=== PATIENT | female | born 1980 | race Caucasian/White ===

== ENCOUNTER 2019-07-21 07:54 | Outpatient (CLI) | payer OTHER, SELFPAY ==
--- NOTE | 2019-07-23 02:01 | SLEEP_ITS ---
Home Sleep Test DATE OF STUDY: 07/21/2019 REASON FOR THIS STUDY: Excessive fatigue, wakes up at night gasping for air. HISTORY: This patient is a 39-year-old female, 5 feet 11 inches tall, weighing 240 pounds with a body mass index of 33.4. Sleep survey indicates that she is always tired. Some night, she wakes up gasping for air. This has been going on for several months. There is a family history with her mother having sleep apnea. She constantly snores and it is frequently loud enough that others complain about it. She occasionally awakens at night from sleep short of breath. She frequently wakes up gasping at night. She occasionally sweats excessively at night. She does not fall asleep involuntarily or while driving. She does not have loss of muscle tone with strong emotion. She rarely has daytime difficulty due to excessive sleepiness. She does not have sleep paralysis. She is never afraid to go to sleep and does not have nightmares. She occasionally remembers her dreams and occasionally has racing thoughts. She rarely feels sad, depressed, anxious, or have muscular tension. She rarely has crawling and aching feelings in the legs. She does not awaken at night with pain, does not feel stiff in the morning, does not have sore achy muscles or wake up with pain in the neck or spine. Normal bedtime is 10 p.m., taking 10 to 15 minutes to fall asleep waking 2 to 3 times at night for 1 to 3 minutes. During this time, she will go to the bathroom. She wakes up in the morning at 6 a.m. Weekend, she goes to bed 1 hour later and wakes up 2 hours later. She does not take naps. A short nap is not refreshing. She is usually drowsy in the morning for 1 hour or longer. She feels better in the evening than other times a day. MEDICAL COMORBIDITIES: Diabetes mellitus. MEDICATIONS: 1. Metformin 1000 mg twice a day. 2. Steglatro 15 mg daily. HABITS: No tobacco, caffeine, or alcohol. DESCRIPTION OF THE STUDY: On the [place] Sleepiness Scale, the score is 1. This was conducted as a home sleep test with 4-channel monitoring including respiratory effort channel, pulse oximetry channel, snoring channel, and heart rate channel. The study was scored using CMS guidelines. Duration of the study was 8 hours 29 minutes. The apnea-hypopnea index was 2.6. This is normal. The respiratory disturbance index was mildly elevated at 6.9. The lowest desaturation is 86%. She had 7 apneas. A 71% of the apneas or 5 were obstructive, 29% of the apneas or 2 were central. She had 15 hypopneas, 261 snoring events, and desaturated 15 times. She spent 1 minute below 88% saturation. Heart rate ranged from 44 to 112, which is elevated. IMPRESSION: This home sleep test does not show significant evidence of sleep-disordered breathing. She had mild hypoxemia at 86%. She had several spikes in her blood pressure with the highest 112 which is also suggestive of sleep apnea. One disadvantage of a home sleep test is that amount of sleep is not known. Her symptoms suggest sleep-disordered breathing. However, this home sleep test is not diagnostic. The patient does not have hypertension or depression. If her symptoms are persistent, consider in-lab sleep study using a sleep aid to assure that she would be able to sleep throughout the night. This test may be more accurate. Consider sleeping in the side position, using [id number] nasal devices such as Breathe Right nasal strips, weight loss and treating any nasal obstruction such as rhinitis with nasal steroid to reduce snoring. Close followup is recommended. MADISYN MOSLEY M.D. [employer] WELDER SETTER [employer]INE WELDER SETTER
== END 2019-07-21 07:55 | disposition home or self-care (01) ==
LOC: ANHCSM 07:55
PROVIDERS: PCP Internal Medicine; Visit Provider Internal Medicine
DX: G47.10 Hypersomnia, unspecified (principal); G47.36 Sleep related hypoventilation in conditions classified elsewhere
CPT/HCPCS: 95806

== ENCOUNTER 2019-08-25 07:00 | Outpatient (CLI) | payer OTHER, SELFPAY ==
--- NOTE | 2019-09-18 15:28 | SLEEP_ITS ---
DATE OF STUDY: 08/25/2019 ORDERING PHYSICIAN: Jose Sapp D.O. REASON FOR THIS STUDY: Hypersomnia. HISTORY: This patient is a 39-year-old female, 71 inches tall, weighing 241 pounds with a body mass index of 33.6. She has complaints of waking up during the night, gasping for air and never feeling rested in the morning. She is tired even after a full night of sleep. This has been going on longer than 2 years. She frequently snores loudly enough that others complain about it. She does not awaken at night with heartburn, belching, or coughing. She rarely awakens from sleep short of breath. There is a family history with her mother having sleep apnea. The patient has difficulty falling asleep at times, wakes up during the night and always has excessive daytime sleepiness. She occasionally has trouble sleeping with a cold, occasionally gasps for breath at night and occasionally sweats excessively at night. She occasionally falls asleep during the day. She does not fall asleep involuntarily, while driving, during physical effort and does not have loss of muscle tone with strong emotion. She occasionally has daytime difficulties due to excessive sleepiness. She does not feel paralyzed on waking or falling asleep. She rarely has vivid dreamlike scenes upon awakening or falling asleep. She does not feel afraid to go to sleep and does not have nightmares. She occasionally remembers her dreams, occasionally has racing thoughts, occasionally has feelings of sadness, depression and anxiety. She never has muscular tension, does not notice parts of her body jerking, does not kick at night and does not have crawly and achy feelings in her legs. She rarely has leg pain at night. She denies morning jaw pain. She rarely is bothered by pain during the day. She is not awakened by pain at night. She rarely wakes up feeling stiff in the morning, occasionally with sore achy muscles, rarely with pain in the neck and spine. She has significant fatigue. Bedtime is between 09:30 p.m. and 11:00 p.m., taking 10 to 15 minutes to fall asleep, waking multiple times at night to use the bathroom, change positions and get comfortable. She wakes in the morning between 5 and 6:30 a.m. On weekends, she goes to bed later between 11:00 p.m. and 1:00 a.m. and wakes between 7 and 08:00 a.m.. She does not take naps. A short nap is not refreshing. She is usually drowsy in the morning for 2 hours or longer. She feels better in the afternoon and the evenings compared to the morning. MEDICAL COMORBIDITIES: Hypertension, heart disease, depression, seasonal allergies. MEDICATIONS: Metformin, iron daily, vitamin, calcium and vitamin D. HABITS: Never smoked tobacco. Caffeine, the amount varies. No alcohol. DESCRIPTION OF THE STUDY: On the [place] Sleepiness Scale, her score is 6. This was conducted as a full night basic nocturnal polysomnogram using the [employer] multiple channel system including EOG, EEG, submental EMG, EKG, nasal and oral airflow using thermistors and nasal pressure sensors, chest and abdominal belts, body position data and pulse oximetry. This study was scored using [facility] guidelines. Duration of the study was 425.4 minutes. Sleep time was 322.5 minutes. Sleep efficiency was 75.8%. Sleep latency 16.6 minutes and REM latency was delayed at 155 minutes. The patient had 24 awakenings and spent 21.1% of the study. Awake after sleep onset 86.4 minutes. Sleep architecture showed 7.1% stage 1 sleep, 57.5% stage 2 sleep, 0.5% stage 3 sleep and 13.8% stage REM. She slept in the supine position for 65.8% of the study. The remainder was non-supine. The patient had 4 REM cycles. The first third of the night was extremely disrupted with long episodes of wakefulness. She had fragmentation of sleep with shifts between wake
== END 2019-08-25 07:01 | disposition home or self-care (01) ==
LOC: ANHCSM 07:01
PROVIDERS: PCP Internal Medicine; Visit Provider Internal Medicine
DX: G47.10 Hypersomnia, unspecified (principal); G47.33 Obstructive sleep apnea (adult) (pediatric); Z68.33 Body mass index [BMI] 33.0-33.9, adult
CPT/HCPCS: 95810

== ENCOUNTER 2020-04-03 14:12 | Emergency (ER) | payer OTHER, SELFPAY ==
--- NOTE | ~2020-04-03 | XR_ITS ---
XR foot LT min 3V DATE: 04/03/2020 14:47 INDICATION: Lateral left foot pain for 2 weeks. No known injury. TECHNIQUE: 4 views COMPARISON: None FINDINGS: Subacute or ununited fracture at the very proximal shaft of the second metatarsal bone. Old healed fracture deformity of the proximal shaft of the fifth metatarsal bone. Hallux valgus and bunion deformity. IMPRESSION: Subacute or ununited fracture at the proximal shaft of the second metatarsal Old healed fracture of proximal shaft of fifth metatarsal Hallux valgus and bunion deformity Reviewed, dictated and finalized at location A. IMPRESSION: Subacute or ununited fracture at the proximal shaft of the second m etatarsal Old healed fracture of proximal shaft of fifth metatarsal Hallux valgus and bunion deformity
--- NOTE | ~2020-04-03 | XR_ITS ---
XR foot RT min 3V DATE: 04/03/2020 14:48 INDICATION: Tripped over an object one week ago. Distal metatarsal pain. TECHNIQUE: 4 views COMPARISON: None FINDINGS: There is an ununited fracture at the very proximal shaft of the third metatarsal bone, with pseudarthrosis. Old healed fracture of the proximal shaft of the fourth metatarsal bone. There is slight osteophyte is at the first metatarsophalangeal joint. IMPRESSION: Pseudoarthrosis at ununited fracture at the proximal shaft of the third metatarsal bone Old healed fracture of the proximal shaft of the fourth metatarsal bone No recent fracture or dislocation is detected Reviewed, dictated and finalized at location A. IMPRESSION: Pseudoarthrosis at ununited fracture at the proximal shaft of the t hird metatarsal bone Old healed fracture of the proximal shaft of the fourth metatarsal bone No recent fracture or dislocation is detected
[2020-04-03 14:26] VITALS: BP 118/74; PULSE 55; RESP 20; TEMP 36.7; O2SAT 99
--- NOTE | 2020-04-03 14:41 | ED.GENADULT ---
HPI - General Adult General Chief complaint: Extremity Injury, Lower Stated complaint: INJURED BOTH FEET Time Seen by Provider: 04/03/20 14:30 Source: patient and RN notes reviewed Limitations: no limitations History of Present Illness HPI narrative: 40-year-old female presents today with complaints of bilateral foot pain for 1-2 weeks. Zina says 1 week ago she tripped over a case of water injuring the dorsal area of RT foot, now has intermittent pain with flexing foot. Two weeks ago while walking stepped wrong with LT foot and now has constant pain to LT 4th and 5th toes. No treatment. Hurts to bear weight and certain movement. No radiation of pain. No numbness, tingling, or loss of mobility. Exacerbating factor applying weight and flexing of RT foot. Denies inability to bear weight. Denies discoloration. Denies suspect foreign body. Denies fever or chills. LMP 2 weeks ago. Remains active. The patient reports she have not been diagnosed with COVID-19. The patient reports she is not waiting for the results of a COVID-19 lab test. The patient reports she do not have fever, chills, weakness, or fatigue. The patient reports she do not have a new or worsening cough or shortness of breath. Denies chest pain. The patient reports she do not have any rhinorrhea, congestion, sore throat, loss of taste, nausea, vomiting, abdominal pain, and diarrhea. Tolerating po intake well. Denies recent traveling. Denies concerns for COVID-19 or exposures been home with limited outdoor exposure except for essential household needs, work, and return home. At this time, patient is not suspected of having COVID-19. Some parts of this dictation were generated by voice recognition software and may contain typographical and/or grammatical inaccuracies. Related Data Home Medications Medication Instructions Recorded Confirmed metformin 1,000 mg tablet 1,000 mg PO BID 05/13/19 04/03/20 blood sugar diagnostic #1 05/18/19 02/19/20 Allergies Allergy/AdvReac Type Severity Reaction Status Date / Time No Known Allergies Allergy Unknown Verified 04/03/20 14:33 Review of Systems Review of Systems: Narrative: CONSTITUTIONAL: Denies fever, chills, sweats. EYES: Denies visual changes, redness, discharge. ENT: Denies rhinorrhea, congestion, sore throat, otalgia. CARDIOVASCULAR: Denies chest pain, palpitations, edema. RESPIRATORY: Denies dyspnea, wheezing, cough. GASTROINTESTINAL: Denies abdominal pain, nausea, vomiting, diarrhea. GENITOURINARY: Denies dysuria, hematuria, abnormal discharge. SKIN: Denies rash or itching. MUSCULOSKELETAL: Denies acute back pain or myalgia. Complains of bilateral foot pain. NEUROLOGIC: Denies numbness or focal weakness. PSYCHIATRIC: Denies anxiety or depression. All other systems reviewed are negative, except as documented in HPI and below. [facility] Past Medical History Medical History (Updated 04/04/20 @ 00:00 by Chandra Duque) Bruising Fatigue Hernia Hypersomnia Primary osteoarthritis of right knee Subconjunctival hemorrhage Type 2 diabetes mellitus Surgical History Surgical History (Updated 04/03/20 @ 14:44 by LORNA Murray) History of tubal ligation History of umbilical hernia repair Hx of bariatric surgery Family History Family History (Updated 04/03/20 @ 14:45 by LORNA Murray) Mother Hypertension Family history of type 2 diabetes mellitus Father Alive and well Social History Social History (Updated 04/03/20 @ 14:45 by LORNA Murray) Smoking status: Never smoker Tobacco type: cigarettes Second hand tobacco smoke exposure: No Alcohol intake: never Substance use: never Living arrangements: with family Occupation/Education: occupation Gender identity (if verbalized by the patient): Female Sexual Orientation (if Verbalized by the Patient): Straight or Heterosexual Comments At time of signature, agree with nurse past medical, surgi
== END 2020-04-03 15:27 | disposition home or self-care (01) ==
PROVIDERS: Emergency Provider Nurse Practitioner Family; PCP Internal Medicine
DX: S93.601A Unspecified sprain of right foot, initial encounter (principal); W18.09XA Striking against other object with subsequent fall, initial encounter; S92.322A Displaced fracture of second metatarsal bone, left foot, initial encounter for closed fracture; X50.9XXA Other and unspecified overexertion or strenuous movements or postures, initial encounter; E11.9 Type 2 diabetes mellitus without complications; M17.11 Unilateral primary osteoarthritis, right knee
CPT/HCPCS: 73630; 99214; G0463

== ENCOUNTER 2021-01-04 08:51 | Outpatient (CLI) | payer OTHER, SELFPAY ==
--- NOTE | 2021-01-04 12:00 | NEURO_ITS ---
Impression: # Complains of hand numbness. # Mild Carpal Tunnel Syndrome, bilaterally. # Right ulnar neuropathy across the elbow. # Normal needle/EMG exam. Nerve Conduction Studies Anti Sensory Summary Table Stim Site NR Peak (ms) P-T Amp (?V) Site1 Site2 Delta-P (ms) Dist (cm) Rupert (m/s) Left Median Anti Sensory (2-3nd Digit) Wrist 3.8 19.4 Wrist 2-3nd Digit 3.8 14.0 37 Wrist 3.8 44.2 Wrist 2-3nd Digit 3.8 14.0 37 Right Median Anti Sensory (2-3nd Digit) Wrist 3.5 38.5 Wrist 2-3nd Digit 3.5 14.0 40 Wrist 3.6 16.3 Wrist 2-3nd Digit 3.5 14.0 40 Left Radial Anti Sensory (Base 1st Digit) Wrist 2.1 12.6 Wrist Base 1st Digit 2.1 0.0 Right Radial Anti Sensory (Base 1st Digit) Wrist 2.5 6.4 Wrist Base 1st Digit 2.5 0.0 Left Ulnar Anti Sensory (5th Digit) Wrist 2.7 43.3 Wrist 5th Digit 2.7 14.0 52 Right Ulnar Anti Sensory (5th Digit) Wrist 2.5 37.9 Wrist 5th Digit 2.5 14.0 56 Motor Summary Table Stim Site NR Onset (ms) O-P Amp (mV) Site1 Site2 Delta-0 (ms) Dist (cm) Rupert (m/s) Left Median Motor (Abd Poll Brev) Wrist 4.3 1.8 Elbow Wrist 4.9 30.0 61 Elbow 9.2 1.9 Right Median Motor (Abd Poll Brev) Wrist 4.1 1.9 Elbow Wrist 5.1 28.0 55 Elbow 9.2 1.8 Left Ulnar Motor (Abd Dig Minimi) Wrist 2.5 4.0 A Elbow Wrist 5.2 30.0 58 A Elbow 7.7 3.0 Right Ulnar Motor (Abd Dig Minimi) Wrist 2.8 4.3 A Elbow Wrist 5.7 28.0 49 A Elbow 8.5 3.2 B Elbow Wrist 4.2 21.0 50 B Elbow 7.0 3.4 F Wave Studies NR F-Lat (ms) L-R F-Lat (ms) Left Median (Mrkrs) (Abd Poll Brev) 29.47 0.99 Right Median (Mrkrs) (Abd Poll Brev) 28.48 0.99 Left Ulnar (Mrkrs) (Abd Dig Min) 28.15 0.00 Right Ulnar (Mrkrs) (Abd Dig Min) 28.15 0.00 EMG Side Muscle Nerve Root Ins Act Fibs Amp Dur Recrt Comment Right 1stDorInt Ulnar C8-T1 Nml Nml Nml Nml Nml Right Ext Indicis Radial (Post Int) C7-8 Nml Nml Nml Nml Nml Right Ext Digitorum Radial (Post Int) C7-8 Nml Nml Nml Nml Nml Right BrachioRad Radial C5-6 Nml Nml Nml Nml Nml Right PronatorTeres Median C6-7 Nml Nml Nml Nml Nml Right Abd Poll Brev Median C8-T1 Nml Nml Nml Nml Nml Left 1stDorInt Ulnar C8-T1 Nml Nml Nml Nml Nml Left Ext Indicis Radial (Post Int) C7-8 Nml Nml Nml Nml Nml Left Ext Digitorum Radial (Post Int) C7-8 Nml Nml Nml Nml Nml Left BrachioRad Radial C5-6 Nml Nml Nml Nml Nml Left PronatorTeres Median C6-7 Nml Nml Nml Nml Nml Left Abd Poll Brev Median C8-T1 Nml Nml Nml Nml Nml Right ABD Dig Min Ulnar C8-T1 Nml Nml Nml Nml Nml Left ABD Dig Min Ulnar C8-T1 Nml Nml Nml Nml Nml MTDD
== END 2021-01-04 08:52 | disposition home or self-care (01) ==
LOC: ANHNEURO 08:53
PROVIDERS: PCP Internal Medicine; Visit Provider Clinical Nurse Specialist
DX: R20.0 Anesthesia of skin (principal); G56.03 Carpal tunnel syndrome, bilateral upper limbs; G56.21 Lesion of ulnar nerve, right upper limb
CPT/HCPCS: 95886; 95911

== ENCOUNTER 2021-02-24 08:54 | Emergency (ER) | payer OTHER, SELFPAY ==
--- NOTE | ~2021-02-24 | CT_ITS ---
EXAMINATION: CT abdomen pelvis w con INDICATION: Left lower quadrant pain TECHNIQUE: Computed tomographic images of the abdomen and pelvis were obtained after the administrati on of 100 cc of Omnipaque 350 intravenous contrast. The dose-length product (DLP) was 1198.66 mGy-cm. Automated exposure control and iterative reconstruction technique were employed. COMPARISON: None available FINDINGS: Minimal dependent atelectasis is present in the lung bases. The heart size is normal. Surgi renea changes in the stomach are consistent with weight loss surgery. The liver, spleen, pancreas, gall bladder, and adrenal glands are normal. There are multiple nonobstructing stones of the left kidney l ower pole which measure up to 7 mm. There is a 2 mm nonobstructing stone of the right kidney. No path ologically enlarged abdominal or pelvic lymph nodes are identified. There is a 4.9 x 4.1 cm rim-enhan cing abscess in the left pelvis containing fluid and gas. Although the abscess abuts the sigmoid colo n, it appears to be contiguous with the uterus and fallopian tube. IMPRESSION: 1. Left pelvic abscess suspicious for ovarian abscess although differential includes diverticular abs cess. Reviewed, dictated and finalized at location A. IMPRESSION: 1. Left pelvic abscess suspicious for ovarian abscess although differential inc ludes diverticular abscess.
[2021-02-24 09:05] VITALS: BP 128/72; PULSE 57; RESP 16; TEMP 36.7; O2SAT 100
[2021-02-24 09:18] LABS: Basophils Absolute Auto 0.1 K/mm3 (0.0-0.1); Basophils Percent Auto 0.9 % (0.2-1.2); Eosinophils Absolute Auto 0.3 K/mm3 (0-0.3); Eosinophils Percent Auto 4.8 % (0-4.4); Hematocrit 38.7 % (37.0-47.0); Hemoglobin 11.8 g/dL (12.0-15.0); Immature Granulocyte Absolute 0.02 K/mm3 (0.00-0.031); Immature Granulocyte Percent A 0.3 % (0-0.5); Lymphocytes Absolute Auto 2.79 K/mm3 (0.9-3.2); Lymphocytes Percent Auto 40.7 % (18.3-44.2); Mean Corpuscular HGB Conc 30.5 g/dl (32-36); Mean Corpuscular Hemoglobin 27.2 pg (26-34); Mean Corpuscular Volume 89.2 fl (80-100); Mean Platelet Volume 10.2 fl (7.4-10.4); Monocytes Absolute Auto 0.7 K/mm3 (0.1-0.6); Monocytes Percent Auto 10.7 % (2.6-8.5); Neutrophils Absolute Auto 2.9 K/mm3 (1.3-6.7); Neutrophils Percent Auto 42.6 % (45.5-73.1); Platelet Count Result 335 k/mm3 (150-375); Red Blood Count 4.34 M/mm3 (4.2-5.4); Red Cell Distribution Width 13.7 % (11.5-14.5); White Blood Count 6.9 K/mm3 (4.5-10.0)
--- NOTE | 2021-02-24 09:23 | ED.ABDPAIN ---
HPI - Abdominal Pain General Chief Complaint: Abdominal Pain Stated Complaint: ABD PAIN Time Seen by Provider: 02/24/21 09:22 Source: patient Mode of arrival: ambulatory Limitations: no limitations History of Present Illness HPI narrative: Patient is a 41-year-old female complaining of left lower quadrant pain, 3 out of 10, sharp, nonradiating x3 days. Patient states that she had diarrhea yesterday but now resolved. Patient denies any chest pain, shortness of breath, nausea, vomiting, urinary symptoms, fever or chills. Related Data Home Medications Medication Instructions Recorded Confirmed blood sugar diagnostic #1 05/18/19 02/24/21 Allergies Allergy/AdvReac Type Severity Reaction Status Date / Time No Known Allergies Allergy Unknown Verified 04/03/20 14:33 Review of Systems Review of Systems: All systems reviewed & are unremarkable except as noted in HPI and below Constitutional: Constitutional: Denies body ache(s), Denies chills, Denies excessive sweating, Denies fatigue, Denies fever(s), Denies headache(s), Denies lethargy, Denies malaise, Denies weakness and Denies weight loss Eyes: Eyes: Denies blurry vision, Denies change in vision and Denies loss of vision ENT: Denies dizziness, Denies ear discharge, Denies headache(s), Denies lip swelling, Denies epistaxis, Denies nasal congestion, Denies neck pain, Denies throat swelling and Denies tongue swelling Cardiovascular: Cardiovascular: Denies chest pain, Denies chest pain at rest, Denies chest pain with activity, Denies diaphoresis, Denies rapid heart rate, Denies edema, Denies irregular heart rhythm, Denies lightheadedness, Denies palpitations, Denies dyspnea and Denies dyspnea on exertion Respiratory: Respiratory: Denies chest congestion, Denies cough, Denies hemoptysis, Denies dyspnea and Denies dyspnea on exertion Gastrointestinal: Gastrointestinal: Denies melena, Denies hematochezia, Denies diarrhea, Denies nausea, Denies vomiting and Denies hematemesis Musculoskeletal: Musculoskeletal: Denies abnormal gait, Denies deformity, Denies joint swelling, Denies limited range of motion, Denies neck pain and Denies numbness Neurologic: Denies Abnormal speech present, Denies abnormal gait, Denies confusion, Denies dizziness, Denies headache(s), Denies focal weakness, Denies loss of vision, Denies numbness, Denies Other visual disturbances, Denies Sensory deficit (Neuro) and Denies weakness Psychiatric: Psychiatric: Denies confusion, Denies depression, Denies auditory hallucinations, Denies homicidal ideation and Denies suicidal ideation Endocrine: Endocrine: Denies cold intolerance, Denies excessive sweating, Denies fatigue, Denies heat intolerance and Denies palpitations Hematologic/Lymphatic: Hematologic/Lymphatic: Denies easy bleeding and Denies easy bruising Allergic/Immunologic: Allergic/Immunologic: Denies lip swelling, Denies throat swelling and Denies tongue swelling PMFSH Past Medical History Medical History Bruising Fatigue Fracture, foot Hernia Hypersomnia Numbness and tingling Primary osteoarthritis of right knee Subconjunctival hemorrhage Type 2 diabetes mellitus Surgical History Surgical History H/O brain surgery History of tubal ligation History of umbilical hernia repair Hx of bariatric surgery Family History Family History Mother Hypertension Family history of type 2 diabetes mellitus Father Alive and well Social History Social History Smoking status: Never smoker Tobacco type: cigarettes Second hand tobacco smoke exposure: No Alcohol intake: never Substance use: never Gender identity (if verbalized by the patient): Female Sexual Orientation (if Verbalized by the Patient): Straight or Heterosexual
[2021-02-24 09:29] LABS: Add Urine Microscopic? YES; Appearance Urine Cloudy (Clear); Bacteria Urine Trace /hpf; Bilirubin Urine Negative (Negative); Blood Urine 2+ (Negative); Color Urine Yellow (Yellow); Glucose Urine UA Negative (Negative); Ketones Urine Negative (Negative); Leukocyte Esterase Ur 3+ LEU/UL (Negative); Mucus Urine Rare /lpf; Nitrate Urine Negative (Negative); Protein Urine Negative (Negative); Specific Grav Ur 1.014 (1.001-1.035); Squamous Epithelial Cell Urine Many /hpf (Few); Urobilinogen Urine Negative mg/dL (<2.0); WBC Urine 51-75 /hpf
[2021-02-24 09:30] LABS: Alanine Aminotransferase 22 U/L (4-35); Albumin Level 3.7 g/dL (3.5-5.1); Alkaline Phosphatase 189 U/L (38-126); Anion Gap 6 mmol/L (8-16); Aspartate Amino Transferase 25 U/L (14-36); Bilirubin,Total 0.4 mg/dL (0.2-1.3); Blood Urea Nitrogen 8 mg/dL (7-17); Calcium 9.1 mg/dL (8.4-10.2); Carbon Dioxide 26 mmol/L (22-30); Chloride 106 mmol/L (98-107); Estimated CRCL calculation 120 ml/min; Estimated Glomerular Filt Rate > 60; Glucose 87 mg/dL (65-110); Lipase 102 U/L (23-300); Potassium 3.8 mmol/L (3.4-5.0); Sodium 138 mmol/L (137-145)
[2021-02-24] MEDS: SODIUM CHLORIDE 0.9% IV 1,000 ML 999 ML IV CONT (10:24)
[2021-02-24 11:49] VITALS: BP 105/69; PULSE 67; RESP 18; O2SAT 99
--- NOTE | 2021-02-24 13:05 | PC.NURSE ---
Patient found in hallway stating she is leaving. IV was discontinued prior to leaving and patient was educated to remain in ED room so EDP Chucho can speak to and update patient. Patient stated she can no longer wait because she needs to diamond picker her kid. Patient then walked to the bathroom. EDP was able to speak to prior after using the bathroom and was advised to stay in hospital for further evaluation and testing. Patient refused and quickly ambulated out of ED with a steady gait and with all belongings, refusing to wait to sign AMA paperwork.
--- NOTE | 2021-02-24 13:05 | PC.NURSE ---
patient walked out of ED without difficulty and in no distress
== END 2021-02-24 13:10 | disposition left against medical advice (07) ==
PROVIDERS: Emergency Provider Emergency Medicine; PCP Internal Medicine
DX: K63.0 Abscess of intestine (principal); N73.9 Female pelvic inflammatory disease, unspecified; E11.9 Type 2 diabetes mellitus without complications; M17.11 Unilateral primary osteoarthritis, right knee
CPT/HCPCS: 36415; 74177; 80053; 81001; 81025; 83690; 85025; 87086; 96360; 99284; J7030; Q9967

== ENCOUNTER 2021-03-28 13:44 | Outpatient (CLI) | payer OTHER, SELFPAY ==
--- NOTE | ~2021-03-28 | CT_ITS ---
EXAMINATION: CT abdomen pelvis w con DATE: 03/28/2021 14:30 INDICATION: Follow-up of abscess following antibiotic treatment TECHNIQUE: Computed tomography (CT) of the abdomen and pelvis was performed with 100 cc Omnipaque 350 intravenous contrast. Automated exposure control and iterative reconstruction technique were employe d. Exam dose: 1007.94 mGy-cm total exam DLP. COMPARISON: 02/24/2021 CT abdomen pelvis FINDINGS: The lung bases are clear of infiltrate or consolidation. Normal heart size. No pericardial or pleural effusion. The gallbladder is present. No gallbladder wall thickening or pericholecystic fluid or fat stranding. No hepatic, splenic, pancreatic or adrenal space-occupying mass lesion is evident. No renal mass les ion is noted. There are 2 approximately 2.5 mm and smaller nonobstructing right renal calculi. There are at least s everal lower pole left renal nonobstructing calculi measuring up to approximately 5 mm. No ureteral c alculus or hydroureteronephrosis. The urinary bladder appears unremarkable. The uterus is present. 2 cm right ovarian cyst. Approximately 4.4 x 4.6 cm left adnexal area air-fluid cavity. There is diminished fluid within the c avity and relatively similar size of the cavity since 02/24/2021. This is noted in immediate contiguity with the sigmoid colon as well as the left adnexa. Differential diagnosis includes sigmoid diverticu lar abscess versus tubo-ovarian abscess. There are multiple diverticula of the sigmoid colon. No evidence of appendicitis. No bowel obstruction is evident. No free intraperitoneal air is noted. T here is minimal free fluid in the dependent pelvis. Normal caliber of the abdominal aorta. No intraperitoneal or retroperitoneal or pelvic mass lesion or adenopathy. Included skeletal structures are unremarkable. IMPRESSION: Stable size of left pelvic cavity with diminished fluid since 02/24/2021; differential bety gnosis includes diverticular abscess versus tubo-ovarian abscess Diverticulosis of the sigmoid colon 2 cm right ovarian cyst Postoperative change of the stomach. Bilateral nonobstructive nephrolithiasis Reviewed, dictated and finalized at Location A. Reviewed, dictated and finalized at location A. IMPRESSION: Stable size of left pelvic cavity with diminished fluid since 2020; differential diagnosis includes diverticular abscess versus tubo-ovarian abscess Diverticulosis of the sigmoid colon 2 cm right ovarian cyst Postoperative change of the stomach. Bilateral nonobstructive nephrolithiasis
[2021-03-28 14:23] LABS: Estimated Glomerular Filt Rate > 60
== END 2021-03-28 13:45 | disposition home or self-care (01) ==
LOC: ANHIMG 13:50
PROVIDERS: PCP Internal Medicine; Visit Provider Clinical Nurse Specialist
DX: N73.9 Female pelvic inflammatory disease, unspecified (principal)
CPT/HCPCS: 74177; Q9967

== ENCOUNTER 2021-07-26 13:29 | Emergency (ER) | payer OTHER, SELFPAY ==
[2021-07-26 13:43] VITALS: BP 168/99; PULSE 80; RESP 16; TEMP 36.7; O2SAT 100
--- NOTE | 2021-07-26 13:50 | ED.URI ---
HPI - URI/Sore Throat General Chief Complaint: Upper Respiratory Infection Stated Complaint: NECK PAIN/R SORE THROAT Time Seen by Provider: 07/26/21 13:45 Source: patient Mode of arrival: ambulatory Limitations: no limitations History of Present Illness HPI Narrative: Zina Jackson is a 41 yo female with a PMH of anxiety, diabetes, [facility] pain that started yesterday. She has no fever but states it is difficult for her to swallow Related Data Home Medications Medication Instructions Recorded Confirmed blood sugar diagnostic #1 05/18/19 06/28/21 ferrous sulfate 325 mg (65 mg 325 mg PO DAILY 05/03/21 06/28/21 iron) tablet hydrocortisone 5 mg tablet 5 mg PO DAILY tablet 06/28/21 06/28/21 metformin 500 mg tablet 500 mg PO BID 06/28/21 06/28/21 Allergies Allergy/AdvReac Type Severity Reaction Status Date / Time No Known Allergies Allergy Unknown Verified 06/28/21 11:02 Review of Systems Review of Systems: CONSTITUTIONAL: Denies fever, chills, sweats. EYES: Denies visual changes, redness, discharge. ENT: Denies rhinorrhea, congestion, has right-sided sore throat, otalgia. CARDIOVASCULAR: Denies chest pain, palpitations, edema. RESPIRATORY: Denies dyspnea, wheezing, cough GASTROINTESTINAL: Denies abdominal pain, nausea, vomiting, diarrhea. GENITOURINARY: Denies dysuria, hematuria, abnormal discharge SKIN: Denies rash or itching. NEUROLOGIC: Denies numbness, or focal weakness. PSYCHIATRIC: Denies anxiety or depression. [facility] Past Medical History Medical History Bruising Fatigue Fracture, foot Hernia Hypersomnia Numbness and tingling Primary osteoarthritis of right knee Subconjunctival hemorrhage Type 2 diabetes mellitus Surgical History Surgical History H/O brain surgery History of tubal ligation History of umbilical hernia repair Hx of bariatric surgery Family History Family History Mother Hypertension Family history of type 2 diabetes mellitus Father Alive and well Social History Social History Smoking status: Never smoker Second hand tobacco smoke exposure: No Alcohol intake: never Substance use: never Gender identity (if verbalized by the patient): Female Sexual Orientation (if Verbalized by the Patient): Straight or Heterosexual Comments At time of signature, I agree with nursing past medical, surgical, social and family history. There is no relevant family history pertinent to the presenting complaint. Patient's blood pressure is elevated at this visit probably due to pain discomfort; follow-up with PCP Exam Narrative: GENERAL: This is a well-nourished, well-developed patient, in mild distress. HEAD: normocephalic, atraumatic. EYES: Sclera clear/white. Vision is grossly intact. EARS: External ears normal, . Hearing grossly intact. NOSE: External nose normal without nasal discharge, nares without redness, no rhinorrhea. THROAT: Mucous membranes moist, posterior pharynx erythema NECK: Neck supple, tenderness along the right submandibular lymph nodes CARDIOVASCULAR: Regular rate and rhythm without murmurs, gallops, or rubs. RESPIRATORY: Clear to auscultation. Breath sounds equal bilaterally. No wheezes, rales, or rhonchi. GASTROINTESTINAL: Abdomen soft SKIN: warm, intact with no suspicious lesions or rash, good texture and turgor. NEURO: awake, alert, and oriented to person, place and time. There were no obvious focal neurologic abnormalities. Steady gait EXTREMITIES: Normal range of motion. BACK: Nontender without deformity Course Course Emergency Course: Patient here with sore throat that started yesterday that she states makes it difficult for him to swallow Strep test negative however patient has tender submandibular lym
== END 2021-07-26 14:04 | disposition home or self-care (01) ==
PROVIDERS: Emergency Provider Nurse Practitioner; PCP Internal Medicine
DX: J02.9 Acute pharyngitis, unspecified (principal); M17.11 Unilateral primary osteoarthritis, right knee; E11.9 Type 2 diabetes mellitus without complications; Z79.4 Long term (current) use of insulin
CPT/HCPCS: 87081; 87880; 99213; G0463

== ENCOUNTER → 2022-01-18 08:50 | Outpatient (CLI) | payer OTHER, SELFPAY ==
--- NOTE | ~2022-01-18 | XR_ITS ---
XR knee LT 3V 01/18/2022 09:11 Indication: Left knee pain Procedure: 3 views left knee Comparison: No prior studies for comparison. Findings: There is moderate-severe tricompartment osteoarthritis of the left knee. No fracture or tra umatic alignment. No significant joint effusion. No foreign bodies. Impression: 1: Moderate-severe tricompartment osteoarthritis of the left knee. Reviewed, dictated and finalized at location A. Impression: 1: Moderate-severe tricompartment osteoarthritis of the left knee.
== END ==
PROVIDERS: PCP Clinical Nurse Specialist; Visit Provider Clinical Nurse Specialist
DX: M17.12 Unilateral primary osteoarthritis, left knee (principal)
CPT/HCPCS: 73562

== ENCOUNTER 2023-02-13 01:14 | Day surgery (SDC) | payer OTHER, SELFPAY ==
[2023-02-05 16:43] VITALS: BMI 27.9
--- NOTE | 2023-02-05 16:48 | PC.NURSE ---
Report to the Outpatient Waiting Room, entrance under the green pavilion located off [facility], at time 06:00am on date 02-13-23. Planned Procedure Time: 07:30am. Time changes happen often and if your time is changed the preop area will call you the afternoon before. - You and your visitor will be asked to self-screen and do not enter if you have any COVID symptoms. - A mask is optional within the hospital at this time. Patients may have clear liquids (water, carbonated beverages, clear teas, apple juice) until 3 hours prior to surgery (4:30am) with a maximum of 20 ounces. - No food from midnight until time of surgery Take the following medications with a SIP of water the morning of surgery: prednisone DO NOT STOP ANY OF YOUR OTHER PRESCRIPTION MEDICATIONS PRIOR TO SURGERY ?EXCEPT THE FOLLOWING Medications to discontinue per physician: n/a Please no make-up, nail belarusian, hairspray, perfume, deodorant, or body powder the day of surgery. No jewelry (including any body piercings) or valuables the day of surgery, leave them at home. Please take a shower or bath the night before, or the morning of, surgery with an antibacterial soap. Wear comfortable, loose fitting clothing. - Jewelry must be removed prior to entering the operating room. Rings and piercings that are not removed may be cut off. - The hospital will not accept responsibility for valuables. - Please leave all valuables, including medications, at home the day of surgery. If you are going home after surgery, a licensed cdl team truck driver must drive you home. - NO public transportation without another adult if you receive anesthesia. - We recommend that an adult stay with you for 24 hours following discharge. - We also recommend that you do not drive, make important decision, drink alcoholic beverages, or take any drugs that were not prescribed by your health care provider for at least 24 hours after your discharge time. Follow any additional instructions given to you from your surgeon. If you or anyone in your household have experienced Covid symptoms in the past week, please notify your surgeon or the nurse liaison at the phone number below for possible testing. Telephone instructions given to patient and asked if any additional questions and then verbalized understanding. Patient advised to call surgeon office or pre surgery nurse liaison [phone] if any additional questions.
[2023-02-13] MEDS: ACETAMINOPHEN 500 MG TABLET 1000 MG PO (06:31)
[2023-02-13] MEDS: LACTATED RINGERS 1,000 ML 30 ML IV CONT (06:37)
[2023-02-13 06:44] VITALS: BP 108/72; PULSE 53; RESP 16; TEMP 36.9; O2SAT 100
--- NOTE | 2023-02-13 07:06 | P.PNAN_ITS ---
Anes - Initial Pre Proc Eval Procedure: Operation Date: 02/13/23 07:30 Proposed Procedures p Hysteroscopy with Endometrial Ablation - Fifi Deal MD Date/Time: 02/13/23 07:06 Surgeon: Fifi Deal MD Pre Op Diagnosis: mennorhagia Patient Data Age: 43 Gender: F Height: 1.8 m Weight: 93.4 kg Last Vital Signs Temp 36.9 C 02/13/23 06:44 Pulse 53 L 02/13/23 06:44 Resp 16 02/13/23 06:44 BP 108/72 02/13/23 06:44 Pulse Ox 100 02/13/23 06:44 O2 Del Method Room Air 02/13/23 06:44 Allergies Allergy/AdvReac Type Severity Reaction Status Date / Time diphenhydramine Allergy Unknown Unknown Verified 02/13/23 06:20 [From Benadryl] Home Medications Medication Instructions Recorded Confirmed Type prednisone 1 mg tablet 5 mg PO DAILY 02/05/23 02/13/23 History Patient hx anesthesia problems: none Family hx anesthesia problems: none Results Review: All pre-operative results and documents have been reviewed as part of the pre- operative evaluation. [facility] Past Medical History Medical History Bruising COVID-19 Fatigue Fracture, foot Hernia Hypersomnia Numbness and tingling Primary osteoarthritis of right knee Retained tampon Subconjunctival hemorrhage Type 2 diabetes mellitus Surgical History Surgical History H/O brain surgery History of tubal ligation History of umbilical hernia repair Hx of bariatric surgery Family History Family History Mother Hypertension Family history of type 2 diabetes mellitus Father Alive and well Social History Social History Smoking status: Former smoker Second hand tobacco smoke exposure: No Alcohol intake: never Substance use: never Substance use type: does not use Living arrangements: with family Occupation/Education: occupation Gender identity (if verbalized by the patient): Female Sexual Orientation (if Verbalized by the Patient): Straight or Heterosexual Spiritual care concerns: No Anes - Eval Final PreProcedure Day of Procedure 02/13/23 07:06 Patient weight: overweight Heart: regular rate and rhythm Lungs: clear to auscultation Airway: Mallampati scale class II Neurological: alert and oriented Last oral intake: >/= 8 hours ASA classification: II Emergent: no Anesthetic plan: proceed Anesthesia type and monitoring: general GIVS and standard monitoring Results Review: All pre-operative results and documents have been reviewed as part of the pre- operative evaluation. Informed Consent: The patient's anesthetic plan and its attendant risks and benefits were discussed with the patient/family/POA. Questions were solicited and answers provided to the satisfaction of the patient/family/POA.
--- NOTE | 2023-02-13 07:16 | PM.IMHP ---
H&P: HPI History of Present Illness Date/Time: 02/13/23 07:16 Chief Complaint: menorrhagia and dysmenorrhea Narrative: Zina is a 43yo here for HSC and endometrial ablation for menorrhagia. Periods extremely heavy, also has bad cramps. tubes tied. benign EMB last month. Aware it may not help cramps. has had bariatric surgery, which helped both her DM and EREN. cannot take NSAIDs. Review of Systems Review of Systems: All systems reviewed & are unremarkable except as noted in HPI and below PMFSH Past Medical History Medical History Bruising COVID-19 Fatigue Fracture, foot Hernia Hypersomnia Numbness and tingling Primary osteoarthritis of right knee Retained tampon Subconjunctival hemorrhage Type 2 diabetes mellitus Surgical History Surgical History H/O brain surgery History of tubal ligation History of umbilical hernia repair Hx of bariatric surgery Family History Family History Mother Hypertension Family history of type 2 diabetes mellitus Father Alive and well Social History Social History Smoking status: Former smoker Second hand tobacco smoke exposure: No Alcohol intake: never Substance use: never Substance use type: does not use Living arrangements: with family Occupation/Education: occupation Gender identity (if verbalized by the patient): Female Sexual Orientation (if Verbalized by the Patient): Straight or Heterosexual Spiritual care concerns: No Meds Home Medications and Allergies Home Medications Medication Instructions Recorded Confirmed Type prednisone 1 mg tablet 5 mg PO DAILY 02/05/23 02/13/23 History Allergies Allergy/AdvReac Type Severity Reaction Status Date / Time diphenhydramine Allergy Unknown Unknown Verified 02/13/23 06:20 [From Benadryl] Vital Signs Vital Signs - 24 hr 02/13/23 06:44 Temperature 98.5 F Pulse Rate 53 L Respiratory Rate 16 Blood Pressure 108/72 Pulse Oximetry 100 Oxygen Delivery Room Air Exam Const: General: no acute distress Resp: Effort & Inspection: normal respiratory effort Auscultation: clear to auscultation bilaterally Cardio: Rate: regular rate Rhythm: regular rhythm GI: GI Palp: Yes Soft to palpation Extrem: General: normal to inspection Assessment and Plan Assessment and plan (1) Menorrhagia: Code(s): N92.0 - Excessive and frequent menstruation with regular cycle Status: Acute (2) Dysmenorrhea: Code(s): N94.6 - Dysmenorrhea, unspecified Status: Acute Plan consented for HSC and endometrial ablation pt aware it may not help dysmenorrhea, but it hopeful it will significantly hep menorrhagia. benign EMB. will proceed.
--- NOTE | 2023-02-13 07:20 | WPDHPUPDATE1 ---
History and Physical Update Update Date/Time: 02/13/23 07:20 History and Physical has been reviewed, including an updated exam of the patient. There are NO changes in the patient's condition. Risks, benefits, and alternatives have been discussed and questions answered. Patient agrees to proceed with procedure.
[2023-02-13] MEDS: BUPIVACAINE/EPINEPHRINE 0.25% 50 ML VIAL 10 ML INFILTRATE (07:41)
--- NOTE | 2023-02-13 07:57 | W.PM.PROC2 ---
Procedure Note - Detailed Date of Procedure 02/13/23 Pre-op Diagnosis menorrhagia Post-op Diagnosis Same Procedure Performed Hysteroscopy and Mela endometrial ablation Surgeon Fifi Deal MD Senior Technical Editor none Anesthesia MAC and Local Indications menorrhagia and/or menometrorrhagia Findings normal uterine cavity Description of Procedure The patient was taken to the operating room and placed in supine position. She received MAC anesthesia and was placed in dorsal lithotomy position in stirrups. A speculum was placed and the posterior lip of the cervix was grasped with a single tooth tenaculum. A paracervical block of 10cc of 0.25% marcaine with epinephrine was done. The cervix sounded to 8.5cm and the cervix was 4cm long, giving a uterine cavity length of 4.5cm. The Mela device was set to this length. The cervix was sequentially dilated to an 8 Deisy. The Aveta hysteroscope was inserted and the cavity visualized and appeared to be normal. The scope was removed and the Mela device inserted through the cervix easily. The balloon was inflated to attain a cervical seal. The device was activated and passed the cavity assessment. It ablated for 2 minutes. The device was removed, the hysteroscope was reinserted and the endometrium was noted to be blanched appropriately. The scope was once again removed. The tenaculum was removed and the cervix was made hemostatic with pressure. The speculum was removed. The patient was awakened from anesthesia and taken to the recovery room in stable condition. Fluid deficit 30cc. Estimated Blood Loss 5 Drains No Packing No Pathology None sent Complications No immediate complications Condition Stable Disposition Same day
[2023-02-13 07:58] VITALS: BP 104/59; PULSE 61; RESP 16; O2SAT 99
[2023-02-13 08:30] VITALS: BP 103/70; PULSE 46
== END 2023-02-13 08:45 | disposition home or self-care (01) ==
PROVIDERS: PCP Internal Medicine; Visit Provider Obstetrics & Gynecology
PROC: 0U5B8ZZ Destruction of Endometrium, Via Natural or Artificial Opening Endoscopic (ICD-10-PCS; CPT 58563; principal; 2023-02-13 07:30)
DX: N92.0 Excessive and frequent menstruation with regular cycle (principal); N94.6 Dysmenorrhea, unspecified; Z87.891 Personal history of nicotine dependence; Z98.84 Bariatric surgery status
CPT/HCPCS: 58563; A9270; J2250; J2704; J3010; J7120

== ENCOUNTER 2023-11-29 16:46 | Emergency (ER) | payer OTHER, SELFPAY ==
[2023-11-29 17:03] VITALS: BP 107/78; PULSE 72; RESP 16; TEMP 36.9; O2SAT 100
--- NOTE | 2023-11-29 17:31 | ED.EAR ---
HPI - Ear Problem General Chief complaint: Ear Stated complaint: EAR CLOGGED Time Seen by Provider: 11/29/23 17:15 Source: patient and RN notes reviewed Mode of arrival: ambulatory Limitations: no limitations History of Present Illness HPI Narrative: Patient presents today complaining of left ear discomfort x2 days. States she was blowing her nose and suddenly felt a pop. Immediately her ear was clogged and muffled. Denies pain. No [id number] treatment prior to arrival. Related Data Allergies Allergy/AdvReac Type Severity Reaction Status Date / Time diphenhydramine Allergy Unknown Unknown Verified 11/29/23 16:59 [From Benadryl] Review of Systems Review of Systems: CONSTITUTIONAL: Denies body aches, fever, chills, or sweats. EYES: Denies visual changes, redness, or discharge. ENT: Denies rhinorrhea, congestion, sore throat, or otalgia.+ left ear fullness CARDIOVASCULAR: Denies chest pain, palpitations, or edema. RESPIRATORY: Denies cough or dyspnea. GASTROINTESTINAL: Denies abdominal pain, nausea, vomiting, or diarrhea. GENITOURINARY: Denies dysuria or hematuria. SKIN: Denies rash, itching, or wounds. MUSCULOSKELETAL: Denies back pain, joint pain, or myalgia. NEUROLOGIC: Denies headache, numbness, tingling, or weakness. PSYCH: Denies depression or anxiety. [facility] Past Medical History Medical History Anxiety Bruising COVID-19 Depression Fatigue Fracture, foot Hernia Hypersomnia Numbness and tingling Primary osteoarthritis of right knee Retained tampon Subconjunctival hemorrhage Type 2 diabetes mellitus Surgical History Surgical History H/O brain surgery History of endometrial ablation History of orthopedic surgery veins removed History of tubal ligation History of umbilical hernia repair Hx of bariatric surgery gastric sleeve Family History Family History Mother Hypertension Family history of type 2 diabetes mellitus Father Alive and well Diabetes mellitus Grandparent Diabetes mellitus maternal grandparents Social History Social History Smoking status: Never smoker Second hand tobacco smoke exposure: No Alcohol intake: never Substance use: never Substance use type: does not use Do You Feel Safe in your Home?: Yes Lack of Transportation: No Lack of Food: Sometimes True Current Housing: I Have Housing Concerned About Future Housing: No Difficulty Paying Gas/Electric Bills: YES Difficulty Paying for Meds: YES Currently Unemployed: No Education: High School Diploma/GED Difficulty w/ Childcare or Family Care: No Living arrangements: with family Occupation/Education: occupation Gender identity (if verbalized by the patient): Female Sexual Orientation (if Verbalized by the Patient): Straight or Heterosexual Spiritual care concerns: No Comments At time of signature, I have reviewed and agree with nursing past medical, surgical, social and family history unless otherwise noted. Please see nursing chart for further information. There is no relevant family history pertinent to the presenting complaint Exam Narrative: GENERAL: Well-appearing, well-nourished, and in no acute distress. HEAD: Normocephalic, atraumatic. EYES: EOMI. No redness or drainage. Conjunctivae normal. ENT: Mucous membranes pink and moist. Nares clear. No rhinorrhea. Right TM normal. Left TM with moderate effusion with clear fluid. Small ball of cerumen was removed by curette for full visualization of the TM. NECK: Normal AROM. Supple. No lymphadenopathy. CHEST: No respiratory distress. EXTREMITIES: Normal range of motion. SKIN: Warm, dry, no rash. Capillary refill normal. NEURO: No focal deficits. Alert and oriented x3. Gait stead
== END 2023-11-29 17:40 | disposition home or self-care (01) ==
PROVIDERS: Emergency Provider Nurse Practitioner; PCP Internal Medicine
DX: H65.02 Acute serous otitis media, left ear (principal); E11.9 Type 2 diabetes mellitus without complications; M17.11 Unilateral primary osteoarthritis, right knee; Z98.84 Bariatric surgery status; Z86.16 Personal history of COVID-19
CPT/HCPCS: 99211; G0463

== ENCOUNTER 2024-01-27 01:06 | Day surgery (SDC) | payer OTHER, SELFPAY ==
[2024-01-20 15:34] VITALS: BMI 30.7
--- NOTE | 2024-01-23 15:43 | PC.NURSE ---
Report to the Outpatient Waiting Room, entrance under the green pavilion located off [facility], at 0800 on 01-27-24. Planned Procedure Time: 1000. Time changes happen often and if your time is changed the preop area will call you the afternoon before. - You and your visitor will be asked to self-screen and do not enter if you have any COVID symptoms. - A mask is optional within the hospital at this time. Patients may have clear liquids (water, carbonated beverages, clear teas, apple juice) until 3 hours prior to surgery with a maximum of 20 ounces. 0700 - No food from midnight until time of surgery - Infants may have breast milk until 4 hours before surgery, infant formula 6 hours prior to surgery. - Children will be allowed to drink immediately following surgery. If applicable, please bring a bottle or sippy cup to assist with drinking. Juice, water, soda, and popsicles are readily available. For infants on formula, please bring formula the day of surgery. Pacifiers are allowed. Take the following medications with a SIP of water the morning of surgery: control DO NOT STOP ANY OF YOUR OTHER PRESCRIPTION MEDICATIONS PRIOR TO SURGERY ?EXCEPT THE FOLLOWING Medications to discontinue per physician: N/A Please no make-up, nail croatian, hairspray, perfume, deodorant, or body powder the day of surgery. No jewelry (including any body piercings) or valuables the day of surgery, leave them at home. Please take a shower or bath the night before, or the morning of, surgery with an antibacterial soap. Wear comfortable, loose fitting clothing. Children are encouraged to wear pajamas. - Jewelry must be removed prior to entering the operating room. Rings and piercings that are not removed may be cut off. - The hospital will not accept responsibility for valuables. - Please leave all valuables, including medications, at home the day of surgery. If you are going home after surgery, a licensed shag truck driver must drive you home. - NO public transportation without another adult if you receive anesthesia. - We recommend that an adult stay with you for 24 hours following discharge. - We also recommend that you do not drive, make important decision, drink alcoholic beverages, or take any drugs that were not prescribed by your health care provider for at least 24 hours after your discharge time. For Pediatric surgeries, we recommend two adults accompany the child home. Follow any additional instructions given to you from your surgeon. If you or anyone in your household have experienced Covid symptoms in the past week, please notify your surgeon or the nurse liaison at the phone number below for possible testing. Telephone instructions given to Zina Jackson and asked if any additional questions and then verbalized understanding. Patient advised to call surgeon office or pre surgery nurse liaison [phone] if any additional questions.
[2024-01-27] VITALS (14 sets, daily range): BP systolic 99–144; BP diastolic 68–77; PULSE 46–88; RESP 12–20; TEMP 36.2–36.9; O2SAT 97–100
--- NOTE | 2024-01-27 07:14 | WPDHPUPDATE1 ---
History and Physical Update Update Date/Time: 01/27/24 07:14 History and Physical has been reviewed, including an updated exam of the patient. There are NO changes in the patient's condition. Risks, benefits, and alternatives have been discussed and questions answered. Patient agrees to proceed with robotic assisted total laparoscopic hysterectomy with bilateral salpingectomy and cystoscopy, possible left oophorectomy.
[2024-01-27] MEDS: LACTATED RINGERS 1,000 ML 30 ML IV CONT ×2 (08:30→13:03)
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
[2024-01-27 09:58] LABS: BEDSIDEPREGUCG Negative
[2024-01-27] MEDS: ceFAZolin 2 GM/D5W 50 ML 2 GM/50 ML BAG IVPB (10:05)
[2024-01-27] MEDS: metroNIDAZOLE 500 MG/ISO 100ML 500 MG/100 ML BAG 100 MG IVPB (10:13)
[2024-01-27] MEDS: LIDO 1%/EPINEPHRINE 1:100,000 20 ML VIAL INFILTRATE (10:54)
--- NOTE | 2024-01-27 12:57 | W.PM.PROC2 ---
Procedure Note - Detailed Date of Procedure 01/27/24 Pre-op Diagnosis Abnormal uterine bleeding Chronic left lower quadrant pelvic pain H/o left adnexal mass H/o tubal ligation and endometrial ablation Post-op Diagnosis Same Procedure Performed Robotic assisted total laparoscopic hysterectomy, bilateral salpingectomy, left oophorectomy, lysis of adhesions, and cystoscopy Surgeon Nicole Oliver MD [employer] Anesthesia General and Local (20cc of 1% lido w/ epi) Findings 3cm cervix; uterus sounded to 8cm; history of tubal ligation noted. Right ovary normal. The colon had thin filmy adhesions to the posterior uterus which were easily taken down. Diffuse and thickened adhesions involving the left ovary/tube to pelvic side wall and small area that was very densely adhered to the colon. I spent a lot of time taking these adhesions down as most of her pain was in the LLQ; I took careful attention to not damage the colon; a small ~1x1cm area of ovarian tissue was left adhered to the colon. Good hemostasis at end of case. Surgicel powder used at the end of the case. Bladder filled without issues; no masses or defects noted. Bilateral ureteral efflux noted. Extensive adhesions to the mid abdomen at the site of her prior hernia repair with mesh-- adhesions not taken down as they did not affect my surgery. Uterus, cervix, bilateral fallopian tubes with left ovary: 148g Description of Procedure Zina was taken to the operating room where she was placed under general anesthesia without issues. She received 2 g Ancef and 500mg Metronidazole. She was then prepped and draped in the usual sterile fashion in the dorsal lithotomy position with her legs in low Markus stirrups, her arms tucked at her side, with a strap over her chest. A time-out was performed. My attention was turned down below where a espinosa catheter was placed. A bivalve speculum was placed within the vagina. The cervix was easily identified and the anterior lip of the cervix was grasped with single-tooth tenaculum. The uterus was then sounded to 8cm. The cervix was serially dilated to allow for the GEORGIE uterine manipulator; which was placed w/o issue (6cm tip with 3cm cervical ring). My gloves were changed and attention was then turned to the abdomen. A 5 mm trocar was placed under direct visualization at Capps's point without issue. Once intra-abdominal placement was confirmed, the abdomen was insufflated with carbon dioxide gas. An abdominal survey was performed and the above findings were noted. Two additional ports were placed on the right and left side and the camera port was placed in the midabdomen under direct visualization without issues. The 5mm port was switched out for the accessory port under direct visualization. The patient was then placed in deep Trendelenburg, with the legs slightly lowered. The robot was then docked. The instruments were placed intra-abdominally under direct visualization. I then un-scrubbed and went to the robotic console. The thin, filmy adhesions in the posterior cul-de-sac between the posterior uterine wall and the colon were slowly and carefully taken down without issue. The adhesions involving the left adnexa were very dense and slowly and carefully removed the left fallopian tube; it was elevated and the mesosalpinx was coagulated and transected, the most proximal portion was cross clamped, coagulated and the tube was transected from the uterus and removed from the abdomen. I then started my hysterectomy on the right side. The ureter was easily identified transperitoneally and well out of the surgical field. The fallopian tube was elevated and the mesosalpinx was coagulated and transected. The round ligament was clamped, coagulated, and transected. The uterine ovarian artery was then serially clamped, coagulated, and transected with good hemostasis. The broad ligament was then dissected anteriorly and posteriorly skeletonizing the uterine artery. The bl
[2024-01-27 13:12] LABS: Glucose Point of Care 169 mg/dl (65-105)
[2024-01-27] MEDS: fentaNYL CITRATE INJ (*CRX) 100 MCG/2 ML VIAL 25 MCG IV PUSH ×7 (13:31→15:10)
[2024-01-27] MEDS: ACETAMINOPHEN 500 MG TABLET 1000 MG PO ×2 (15:08→20:59)
[2024-01-27] MEDS: oxyCODONE HCL (*CRX) 5 MG TAB IR PO ×2 (16:28→20:21)
[2024-01-27] MEDS: DOCUSATE SODIUM 100 MG CAPSULE PO (16:28)
[2024-01-27] MEDS: SIMETHICONE 80 MG TAB.CHEW PO (16:28)
--- NOTE | 2024-01-27 21:03 | PC.NURSE ---
patient stated that she wishes not to have fentanyl used for anesthesia in the future, she does not like the way it is making her feel.
[2024-01-28 00:01] VITALS: BP 109/59; PULSE 50; RESP 16; TEMP 36.6; O2SAT 98
--- NOTE | 2024-01-28 03:07 | PC.NURSE ---
01/28/24 at 0304 I entered Zina's room to give her scheduled tylenol 1000 mg; do her vitals, assessment, and draw morning labs. As I gently woke the patient and told her what I was about to do she said, No, can't that wait until morning? I explained to Zina the tylenol is what Dr. Oliver has ordered for her to take. Well, can't you wait until at least 4:00 (a.m.)? I agree with the patient and told her I will be back at 0400.
[2024-01-28] MEDS: oxyCODONE HCL (*CRX) 5 MG TAB IR PO ×3 (04:27→13:12)
[2024-01-28] MEDS: ACETAMINOPHEN 500 MG TABLET 1000 MG PO ×2 (04:27→13:11)
--- NOTE | 2024-01-28 07:13 | PM.GYNPNOP ---
[employer] - A/P Assessment and plan (1) S/P laparoscopic hysterectomy: Code(s): Z90.710 - Acquired absence of both cervix and uterus Status: Acute Postoperative Procedures: Procedures Operation Date: 01/27/24 10:00 Actual Procedure Side Surgeon p Robotic Assisted Total Laparoscopic Hysterectomy with Bilateral Salpingectomy, Left Oophorectomy, Lysis of Adhesions Left Nicole Oliver MD Postoperative day: 1 Postoperative status: doing well Postoperative plan: routine post-op care and discharge Time Spent With Patient Time: Total time spent is greater than 50% in coordination of care (as documented) at patient's floor/unit and/or counseling patient: Time with patient: less than 15 minutes [employer]- PN:Subj Post-Op Subjective Date/time seen: 01/28/24 07:25 Interval history: POD#1 Zina reports doing well today. No issues overnight. Her pain is controlled with PO meds. She has tolerated regular diet. She denies any vaginal bleeding. She has voided. She has not passed flatus. She has ambulated and denies any symptoms of anemia. Review of Systems Review of Systems: All systems reviewed & are unremarkable except as noted in HPI and below (HPI) Constitutional: Constitutional: Denies chills, Denies fever(s) and Denies headache(s) Eyes: Eyes: Denies change in vision ENT: Denies dizziness and Denies headache(s) Cardiovascular: Cardiovascular: Denies chest pain and Denies rapid heart rate Respiratory: Respiratory: Denies cough Genitourinary: Genitourinary: Denies abnormal vaginal bleeding Neurologic: Denies dizziness and Denies headache(s) Exam Const: General: cooperative, healthy appearing, comfortable and no acute distress Orientation/consciousness: patient oriented x3 Resp: Effort & Inspection: normal respiratory effort Auscultation: clear to auscultation bilaterally Cardio: Rate: regular rate GI: Inspection: normal to inspection and incision ( LSC incisions c/d/i) GI Palp: Yes abdominal tenderness (appropriate) and Yes Soft to palpation Auscultation: normal bowel sounds : Other: normal bleeding on pad Skin: General skin exam: normal color Neuro: General: patient oriented x3 Psych: Appearance: grossly normal Affect: normal affect Attitude: cooperative [employer] - PN: Obj Data Vital Signs Vital Signs: Vital Signs - 24 hr 01/27/24 09:36 01/27/24 13:03 01/27/24 13:18 Temperature 97.2 F L 97.8 F Pulse Rate 51 L 88 60 Respiratory Rate 20 18 12 Blood Pressure 121/74 125/76 117/77 Pulse Oximetry 100 97 100 Oxygen Delivery Room Air Simple Face Mask Simple Face Mask Oxygen Flow Rate 6 6 01/27/24 13:33 01/27/24 13:45 Temperature Pulse Rate 53 L 50 L Respiratory Rate 12 18 Blood Pressure 138/71 120/68 Pulse Oximetry 98 98 Oxygen Delivery Room Air Room Air Oxygen Flow Rate Intake/Output Intake/Output: Intake & Output 01/24/24 01/25/24 01/26/24 01/27/24 23:59 23:59 23:59 23:59 Intake Total 1550 Output Total 275 Balance 1275 Meds/Results Medications: Active Medications Generic Name Dose Route Start Last Admin Trade Name Freq PRN Reason Stop Dose Admin Fentanyl Citrate 25 mcg 01/27/24 09:20 01/27/24 14:15 Fentanyl Citrate Inj (*Crx) 100 Mcg/2 Ml Vial IV PUSH 25 mcg Q2M PRN Administration Pain Lactated Ringer's 1,000 mls @ 30 mls/hr 01/27/24 09:20 01/27/24 13:03 Lr - Lactated Ringers Iv IV CONT Infused .Q24H JOSE RAUL Infusion Lactated Ringer's 1,000 mls @ 30 mls/hr 01/27/24 09:20 01/27/24 13:03 Lr - Lactated Ringers Iv IV CONT 30 mls/hr .Q24H JOSE RAUL Administration Ondansetron HCl 4 mg 01/27/24 09:20 Ondansetron Inj 4 Mg/2 Ml Vial IV PUSH ONCE PRN Nausea Oxycodone HCl 5 mg 01/27/24 09:20 Oxycodone Hcl (*Crx) 5 Mg Tab Ir PO ONCE PRN Pain Labs Labs: Laboratory Results - last 24 hr 01/27/24 01/27/24 01/27/24 08:25 09:36 13:10 POC Capillary Glucose 169 H POC U
[2024-01-28 07:15] VITALS: BP 118/70; PULSE 54; RESP 16; TEMP 36.7; O2SAT 99
[2024-01-28] MEDS: DOCUSATE SODIUM 100 MG CAPSULE PO (08:12)
[2024-01-28] MEDS: SIMETHICONE 80 MG TAB.CHEW PO ×2 (08:12→13:11)
[2024-01-28 11:53] LABS: Basophils Percent Auto 0.2 % (0.2-1.2); Eosinophils Percent Auto 0.2 % (0-4.4); Hematocrit 33.4 % (37.0-47.0); Hemoglobin 10.6 g/dL (12.0-15.0); Immature Granulocyte Absolute 0.03 K/mm3 (0.00-0.031); Immature Granulocyte Percent A 0.3 % (0-0.5); Lymphocytes Percent Auto 22.4 % (18.3-44.2); Mean Corpuscular HGB Conc 31.7 g/dl (32-36); Mean Corpuscular Hemoglobin 29.1 pg (26-34); Mean Corpuscular Volume 91.8 fl (80-100); Monocytes Absolute Auto 0.9 K/mm3 (0.1-0.6); Monocytes Percent Auto 9.2 % (2.6-8.5); Neutrophils Percent Auto 67.7 % (45.5-73.1); Platelet Count Result 264 k/mm3 (150-375); Red Blood Count 3.64 M/mm3 (4.2-5.4); Red Cell Distribution Width 14.5 % (11.5-14.5); White Blood Count 10.3 K/mm3 (4.5-10.0)
[2024-01-28 12:06] LABS: Anion Gap 6 mmol/L (4-12); Blood Urea Nitrogen 10 mg/dL (7-17); Carbon Dioxide 23 mmol/L (22-30); Chloride 110 mmol/L (98-107); Estimated CRCL calculation 118 ml/min; Estimated Glomerular Filt Rate > 60; Glucose 106 mg/dL (65-110); Potassium 4.1 mmol/L (3.4-5.0); Sodium 139 mmol/L (137-145)
--- NOTE | 2024-01-28 12:06 | P.PNAN_ITS ---
Anes - Prog Note Post-Op Date/Time: 01/28/24 12:06 Cardiovascular status: normal Respiratory status: normal Airway patency: baseline Mental status: baseline Post-Op hydration status: normal Vital Signs: Last Vital Signs Temp 36.7 C 01/28/24 07:15 Pulse 54 L 01/28/24 07:15 Resp 16 01/28/24 07:15 BP 118/70 01/28/24 07:15 Pulse Ox 99 01/28/24 07:15 O2 Del Method Room Air 01/28/24 08:12 O2 Flow Rate 6 01/27/24 13:18 Pain Score (VAS): 0 I/O: Intake & Output 01/27/24 01/28/24 01/28/24 23:59 07:59 15:59 Output Total 101 716 3120 Balance -150 -200 -1000 01/27/24 01/28/24 13:10 11:19 WBC Pending RBC Pending Hgb Pending Hct Pending MCV Pending MCH Pending MCHC Pending RDW Pending Plt Count Pending MPV Pending Immature Gran % (Auto) Pending Neut % (Auto) Pending Lymph % (Auto) Pending [place] % (Auto) Pending Eos % (Auto) Pending Baso % (Auto) Pending Lymph # (Auto) Pending [place] # (Auto) Pending Eos # (Auto) Pending Baso # (Auto) Pending Abs Immat Gran (auto) Pending Absolute Neuts (auto) Pending Absolute Nucleated RBC Pending Nucleated RBC % Pending Sodium Pending Potassium Pending Chloride Pending Carbon Dioxide Pending Anion Gap Pending BUN Pending Creatinine Pending Estim Creat Clear Calc Pending Estimated GFR Pending Glucose Pending POC Capillary Glucose 169 H Calcium Pending Post-procedural complaints: none Patient Feedback: Patient satisfied with anesthetic care.
--- NOTE | 2024-01-28 15:47 | PC.NURSE ---
0715 Pt stated that she wanted a lab worker to come and draw her blood. 0723 This RN called Lab and asked them to send a person from there to come and draw blood due to pts wishes. 1049 called Lab again to come and draw pts blood. 1120 Lab here to draw her blood.
== END 2024-01-28 14:32 | disposition home or self-care (01) ==
LOC: ANHSURGERY 14:21 → ANHOB2 15:51
PROVIDERS: Anesthesiology; PCP Internal Medicine; Visit Provider Obstetrics & Gynecology
PROC: (CPT 58571; principal; 2024-01-27 10:00)
DX: N93.9 Abnormal uterine and vaginal bleeding, unspecified (principal); N73.6 Female pelvic peritoneal adhesions (postinfective); N88.8 Other specified noninflammatory disorders of cervix uteri; N83.12 Corpus luteum cyst of left ovary; N85.8 Other specified noninflammatory disorders of uterus; E11.9 Type 2 diabetes mellitus without complications; F41.9 Anxiety disorder, unspecified; F32.A Depression, unspecified; Z98.84 Bariatric surgery status; E66.9 Obesity, unspecified; Z68.31 Body mass index [BMI] 31.0-31.9, adult
CPT/HCPCS: 58571; S2900; 36415; 80048; 82948; 85025; 86850; 86900; 86901; 88307; 99199; A9270; J0690; J1100; J1170; J1596; J1836; J2250; J2371; J2405; J2704; J3010; J7030; J7120

== ENCOUNTER 2024-03-02 10:13 | Outpatient (CLI) | payer OTHER, SELFPAY ==
--- NOTE | ~2024-03-02 | XR_ITS ---
XR knee RT 3V Ordering provider: ANISA John History: . M25.561 - Pain in right knee, NKI, NO HX SURGEY . Comparison: April 07, 2019 FINDINGS: BONES: No acute fracture or dislocation. Marginal osteophytes in the knee and patella. JOINT SPACES: Narrowing of the patellofemoral joint. SOFT TISSUES: Normal. IMPRESSION: No acute osseous abnormality right knee. Mild osteoarthritic changes. Reviewed, dictated and finalized at location A.
== END 2024-03-02 10:14 | disposition home or self-care (01) ==
PROVIDERS: PCP Internal Medicine; Visit Provider Clinical Nurse Specialist
DX: M17.11 Unilateral primary osteoarthritis, right knee (principal)
CPT/HCPCS: 73562

== ENCOUNTER 2024-04-06 16:54 | Emergency (ER) | payer OTHER, SELFPAY ==
[2024-04-06 17:05] VITALS: BP 136/93; PULSE 67; RESP 20; TEMP 36.9; O2SAT 100
[2024-04-06 17:21] LABS: EDUAAPPEAR Clear; EDUABILI Negative (Negative); EDUABLOOD Negative (Negative); EDUACOLOR1 Yellow; EDUAGLUCOSE Negative (Negative); EDUAKETONE Negative (Negative); EDUALEUKO Trace (Negative); EDUANITRATE Negative (Negative); EDUAPH 7.5; EDUAPROTEIN Negative (Negative); EDUAUROBILI 0.2
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
== END 2024-04-06 18:07 | disposition home or self-care (01) ==
PROVIDERS: Emergency Provider Nurse Practitioner; PCP Internal Medicine
DX: M54.50 Low back pain, unspecified (principal); E11.9 Type 2 diabetes mellitus without complications; M17.11 Unilateral primary osteoarthritis, right knee; Z86.16 Personal history of COVID-19
CPT/HCPCS: 81003; 87086; 99213; G0463

== ENCOUNTER 2024-05-02 18:44 | Emergency (ER) | payer OTHER, SELFPAY ==
[2024-05-02 18:50] VITALS: BP 129/88; PULSE 63; RESP 16; TEMP 36.6; O2SAT 100
--- NOTE | 2024-05-02 18:53 | ED_ITS ---
HPI - Female Genitourinary General Chief complaint: Urogenital-Female Stated complaint: Uti Symptoms Time Seen by Provider: 05/02/24 18:54 Source: patient, RN notes reviewed and old records reviewed Mode of arrival: ambulatory Limitations: no limitations History of Present Illness HPI Narrative: 44 year old female who presents to [facility] care with complaints of urinary tract infection which just started this morning includes urinary frequency and she states 'she just knew she had an infection when she awoke'. Patient denies any fevers, chills or sweats, denies little burning with urination denies any back pain or any suprapubic tenderness. Patient reports that she has had URI's in the past and has been seen in clinic in past with no positive urine cultures noted. MD elicited complaint: UTI Onset (ago): day(s) (this morning) Location of symptoms: perineum Severity: mild Vaginal discharge: none Vaginal bleeding: none Treatment prior to arrival: none Related Data Allergies Allergy/AdvReac Type Severity Reaction Status Date / Time tramadol Allergy Severe suicidal Verified 05/02/24 18:57 thoughts diphenhydramine Allergy Unknown Unknown Verified 05/02/24 18:57 [From Benadryl] Review of Systems Review of Systems: CONSTITUTIONAL: Denies fever, chills, or sweats. CARDIOVASCULAR: Denies chest pain, palpitations, or edema. RESPIRATORY: Denies cough or dyspnea. GASTROINTESTINAL: Denies abdominal pain, nausea, vomiting, or diarrhea. GENITOURINARY: Reports little burning,states frequency, no urgency. Denies flank pain or hematuria. SKIN: Denies rash or itching. MUSCULOSKELETAL: Denies back pain or myalgia. Denies CVA tenderness NEUROLOGIC: Denies headache All systems reviewed & are unremarkable except as noted in HPI and below [facility] Past Medical History Medical History Anxiety Bruising COVID-19 Depression Fatigue Fracture, foot Hernia Hypersomnia Numbness and tingling Primary osteoarthritis of right knee Retained tampon Subconjunctival hemorrhage Type 2 diabetes mellitus Surgical History Surgical History H/O brain surgery H/O: hysterectomy 01/27/24 Robotic assisted total laparoscopic hysterectomy, bilateral salpingectomy, left oophorectomy, lysis of adhesions, and cystoscopy History of endometrial ablation History of gynecological procedure (01/09/23) EMB Negative History of orthopedic surgery veins removed History of tubal ligation History of umbilical hernia repair Hx of bariatric surgery gastric sleeve Status post abdominoplasty Family History Family History Mother Hypertension Family history of type 2 diabetes mellitus Father Alive and well Diabetes mellitus Grandparent Diabetes mellitus maternal grandparents Social History Social History Smoking status: Never smoker Second hand tobacco smoke exposure: No Alcohol intake: never Substance use: never Substance use type: does not use Do You Feel Safe in your Home?: Yes Lack of Transportation: No Lack of Food: Sometimes True Current Housing: I Have Housing Concerned About Future Housing: No Difficulty Paying Gas/Electric Bills: YES Difficulty Paying for Meds: YES Currently Unemployed: No Education: High School Diploma/GED Difficulty w/ Childcare or Family Care: No Living arrangements: with family Occupation/Education: occupation Gender identity (if verbalized by the patient): Female Sexual Orientation (if Verbalized by the Patient): Straight or Heterosexual Spiritual care concerns: No Comments At time of signature, agree with nursing past medical, surgical, social and family history. There is no relevant family history pertinent to the presenting complaint Exam Narrative: GENERAL: Well-appearing, well-nourished, and in no acute distress. HEAD: Normocephalic, atraumatic. NECK: Supple.no lymphadenopathy CHEST: Clear to auscultation. No respiratory distress.SAO2 100% on room air HEART: Regular rate and rhythm. No murmur heard. Normal peripheral pulses. ABDOMEN: Soft, nontender, nondistended, normal active bowel sounds. No CVA tenderness EXTREMITIES: Normal range of motion. No edema. SKIN: Warm, dry, no rash. NEURO: No focal deficits. Alert and oriented x3. Course Course Emergency Course: Patient is aware of diagnosis, understands and agrees to treatment plan.? Anticipatory guidance given.? Patient agrees to follow-up as directed and is aware of reasons to seek care at the emergency department. Portions of this record may have been created with voice recognition software Level of Care: Express Care Visit Vital Signs Vital signs: Vital Signs Temperature 36.6 C 05/02/24 18:50 Pulse Rate 63 05/02/24 18:50 Respiratory Rate 16 05/02/24 18:50 Blood Pressure 129/88 05/02/24 18:50 Pulse Oximetry 100 05/02/24 18:50 Temperature 36.6 C 05/02/24 18:50 Pulse Rate 63 05/02/24 18:50 Respiratory Rate 16 05/02/24 18:50 Blood Pressure 129/88 05/02/24 18:50 Pulse Oximetry 100 05/02/24 18:50 MDM - Female Genitourinary MDM Narrative Medical decision making narrative: Exam findings and UA show no acute concerns or changes; patient is non-toxic appearing and is in no distress.? Patient is appropriate for outpatient nataly tment and follow-up. Differential Diagnosis Differential diagnosis: Likely urinary tract infection, cystitis and other (urinary frequency) Medical Records Attestation: I reviewed the patient's medical records. Lab Data Attestation: I reviewed the patient's lab results. Lab results narrative: urine dip glucose negative, bilirubin negative, ketone negative, gravity 1.020, blood 2+, pH 7 0 protein 2+ urobilinogen 0.2 nitrate positive, leukocyte 2+ Labs: Lab Results 05/02/24 Range/Units 18:57 POC Urine Color Yellow POC Urine Clarity Cloudy POC Urine pH 7.0 POC Ur Specif [place] 1.020 POC Urine Protein 2+ (Negative) POC Ur Glucose (UA) Negative (Negative) POC Urine Ketones Negative (Negative) POC Urine Blood 2+ (Negative) POC Urine Nitrite Positive (Negative) POC Urine Bilirubin Negative (Negative) POC Urine Urobilinogen 0.2 POC U Leukocyte Esteras 2+ (Negative) reviewed Critical Care Time Critical Care Time Critical Care Time: No Discharge Plan Discharge Clinical Impression: UTI symptoms Patient Disposition: Home, Self-Care Condition: Stable Instructions: Antibiotic Form, Urinary Tract Infection in Women (ED) Additional Instructions: Increase fluids especially cranberry juice and water Avoid caffeine and carbonated beverages Antibiotic as directed Medicine as directed--cautioned it will cause your urine to be bright orange Tylenol/ibuprofen for pain or fever Follow-up with her primary care provider if further problems or concerns Recheck if you have fever over 101, nausea and vomiting. If your symptoms persist, change or worsen significantly before you can contact your personal physician then please, without delay, go to the emergency departm ent for further evaluation. Follow-up with PCP in 7-10 days or sooner if needed Follow up with PCP soon in regards to your blood pressure which is elevated above threshold for referral. Blood pressure above 120/80 may indicate pre- hypertension. 129/88 Prescriptions: New nitrofurantoin monohyd/m-cryst [Macrobid] 100 mg capsule 100 mg PO Q12H 7 Days Qty: 14 0RF Rx Instructions: must administer with a meal/food No Action clobetasol 0.05 % ointment 1 applic topical BID Qty: 60 0RF Follow-up/Referrals: PHYSICIAN,ACCOUNT MANAGER EDUCATION [Primary Care Provider] - Time of Disposition: 19:14 Quality [place] Coma Scale Eyes: Open Verbal: Oriented and Alert Motor: Follows Commands Fitz[place]illiam Coma Total Score: 15
[2024-05-02 19:00] LABS: EDUAAPPEAR Cloudy; EDUABILI Negative (Negative); EDUABLOOD 2+ (Negative); EDUACOLOR1 Yellow; EDUAGLUCOSE Negative (Negative); EDUAKETONE Negative (Negative); EDUALEUKO 2+ (Negative); EDUANITRATE Positive (Negative); EDUAPROTEIN 2+ (Negative); EDUAUROBILI 0.2
== END 2024-05-02 19:20 | disposition home or self-care (01) ==
PROVIDERS: Emergency Provider Registered Nurse
DX: R30.0 Dysuria (principal); R35.0 Frequency of micturition; E11.9 Type 2 diabetes mellitus without complications; M17.11 Unilateral primary osteoarthritis, right knee; Z86.16 Personal history of COVID-19
CPT/HCPCS: 81003; 87086; 87186; 99213; G0463

== ENCOUNTER 2024-05-13 15:45 | Outpatient (RCR) | payer OTHER, SELFPAY ==
--- NOTE | 2024-03-23 15:30 | PCPTNOTE ---
Patient called & cancelled scheduled appointment this date due to no transportation. She has been rescheduled.
--- NOTE | 2024-04-13 16:31 | OPREHPOC ---
Outpatient Therapy Plan of Care This is a Multidisciplinary Plan of Care that may contain components documented by all disciplines (PT, OT, and ST.) PT Problem 1 PT Problem #1 Knowledge Deficit PT Goal 1 Goal / Goal Update Pt to be IND with issued HEP Target Visit 8 PT Problem 2 PT Problem #2 Pain PT Goal 1 Goal / Goal Update Pt to report back pain no greater than 3/10 in the last week. Target Visit 10 PT Goal 2 Goal / Goal Update Pt to report no pain when rolling over in bed. PT Problem 3 PT Problem #3 Impaired Functional Mobil PT Goal 1 Goal / Goal Update Pt to demonstrate 5xSTS in less than 15s without an increase in pain. Target Visit 10 PT Goal 2 Goal / Goal Update Pt to demonstrate a functional lift and carry with 30lb from ground level without an increase in pain. Target Visit 10
--- NOTE | 2024-04-13 16:31 | PTOPEVAL1 ---
Assessment and note entered by Francisca Feliciano, PT, DPT Evaluation Information Assessment Status Evaluation Diagnosis R knee pain ICD-10 Condition Codes (PT) M25.561 Subjective Information Pt states she is having a lot of knee pain, states it started about 1-2 months ago. She declines a known injury. She states it has gotten worse in the last couple of weeks since she saw the doctor. Pt states even switching back and forth between the gas and the break will cause pain. States she wakes up when she rolls over in bed d/t pain. 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 Pt reports a stabbing pain, throughout her entire knee region. Pt reports a 10/10 at the worst. Reported Pain Level Pain Score 0: Self Report Assessment PT Clinical Summary Pt presents to therapy today for her initial evaluation with a diagnosis of R knee pain, she demonstrates signs and symptoms consistent with patellofemoral syndrome. She has a medial resting patella, poor lateral hip strength, and increased genu valgus. Taping decreased pain with functional mobility. Without taping pt is unable to transfers from sitting <> standing without an increase in pain. Skilled therapy services are indicated to address the deficits noted above, to manage pain, and to return to PLOF. Plan of Care Interventions Electrical Stimulation,Gait Training,Hot Pack/Cold Pack,Manual Therapy,Neuro Re-education,Patient/ Caregiver Educati,Therapeutic Activities, Therapeutic Exercise PT Services Indicated Yes Treatment Frequency and 2x/wk for 10 visits Duration These treatments will address the objective and functional deficits as defined above. The patient will be advanced safely and appropriately in order for the patient to progress towards his/her prior level of function. Additional exercises will be introduced and as well as a comprehensive home exercise program upon discharge, if needed, ?to ensure carryover of functional gains achieved in the clinic. This treatment plan has been reviewed and agreement upon by the patient.
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
--- NOTE | 2024-05-11 15:01 | PCPTNOTE ---
Patient did not show up for scheduled appointment this date. Called and spoke to pt, states she forgot to call to cancel.
--- NOTE | 2024-05-13 16:30 | PTOPDC ---
Assessment and note entered by Francisca Feliciano, PT, DPT Evaluation Information Assessment Status Discharge Diagnosis R knee pain ICD-10 Condition Codes (PT) M25.561 Subjective Information Pt states her pain continues to come and go. Pt states she has not seen any changes since starting therapy, shes states if anything it made it worse because now her L knee hurts. She states she only get relief when she is tapped. Reported Pain Level Pain Score 0: Self Report Assessment PT Clinical Summary Pt presents to therapy today for her progress report following 7 visits of skilled therapy. Today she reports little to no improvements in her R knee. She demonstrates improved active ROM but states ROM is still very painful. Her gait pattern has improved but she still ambulates with a decreased speed compared to normal values. Pt would like to be sent back to the doctor to determine next steps to treat her pain. Will d/c per request. Education to continue HEP.
== END 2024-05-14 07:58 | disposition home or self-care (01) ==
LOC: ANHGOSHPT 15:45
PROVIDERS: PCP Internal Medicine; Visit Provider Clinical Nurse Specialist
DX: M25.561 Pain in right knee (principal)
CPT/HCPCS: 97110; 97140; 97161; 97530

== ENCOUNTER 2024-05-13 16:25 | Emergency (ER) | payer OTHER, SELFPAY ==
[2024-05-13 16:33] VITALS: BP 136/81; PULSE 117; RESP 16; TEMP 36.6; O2SAT 100
--- NOTE | 2024-05-13 16:37 | ED.FEMALEGU ---
HPI - Female Genitourinary General Chief complaint: Urogenital-Female Stated complaint: UTI Time Seen by Provider: 05/13/24 16:30 Source: patient Mode of arrival: ambulatory Limitations: no limitations History of Present Illness HPI Narrative: Patient is a 44-year-old female who presents with urinary frequency and pressure. Patient was seen 05/02 and given Macrobid. Culture came back and switched to Cipro. Patient states symptoms have never gone away. Denies any fever, chills, nausea, vomiting, diarrhea, low back pain MD elicited complaint: dysuria Related Data Allergies Allergy/AdvReac Type Severity Reaction Status Date / Time tramadol Allergy Severe suicidal Verified 05/13/24 16:40 thoughts diphenhydramine Allergy Unknown Unknown Verified 05/13/24 16:40 [From Margymary] Review of Systems Review of Systems: All systems reviewed & are unremarkable except as noted in HPI and below Constitutional: Constitutional: Denies chills, Denies fever(s), Denies headache(s), Denies malaise and Denies weakness Eyes: Eyes: Denies change in vision, Denies eye discharge and Denies irritation ENT: Denies otalgia, Denies headache(s), Denies nasal congestion, Denies nasal discharge, Denies sinus pain and Denies sore throat Cardiovascular: Cardiovascular: Denies chest pain, Denies edema, Denies palpitations and Denies dyspnea Respiratory: Respiratory: Denies cough and Denies dyspnea Gastrointestinal: Gastrointestinal: Denies abdominal pain, Denies diarrhea, Denies nausea and Denies vomiting Genitourinary: Genitourinary: Denies hematuria, Reports nocturia, Denies dysuria, Denies flank pain and Reports urinary urgency Musculoskeletal: Musculoskeletal: Denies back pain and Denies numbness Integumentary/Breasts: Skin/Breast: Denies pruritus and Denies rash Neurologic: Denies headache(s), Denies numbness and Denies weakness Psychiatric: Psychiatric: Reports no additional psychiatric complaints Endocrine: Endocrine: Denies palpitations PMFSH Past Medical History Medical History Anxiety Bruising COVID-19 Depression Fatigue Fracture, foot Hernia Hypersomnia Numbness and tingling Primary osteoarthritis of right knee Retained tampon Subconjunctival hemorrhage Type 2 diabetes mellitus Surgical History Surgical History H/O brain surgery H/O: hysterectomy 01/27/24 Robotic assisted total laparoscopic hysterectomy, bilateral salpingectomy, left oophorectomy, lysis of adhesions, and cystoscopy History of endometrial ablation History of gynecological procedure (01/09/23) EMB Negative History of orthopedic surgery veins removed History of tubal ligation History of umbilical hernia repair Hx of bariatric surgery gastric sleeve Status post abdominoplasty Family History Family History Mother Hypertension Family history of type 2 diabetes mellitus Father Alive and well Diabetes mellitus Grandparent Diabetes mellitus maternal grandparents Social History Social History Smoking status: Never smoker Second hand tobacco smoke exposure: No Alcohol intake: never Substance use: never Substance use type: does not use Do You Feel Safe in your Home?: Yes Lack of Transportation: No Lack of Food: Sometimes True Current Housing: I Have Housing Concerned About Future Housing: No Difficulty Paying Gas/Electric Bills: YES Difficulty Paying for Meds: YES Currently Unemployed: No Education: High School Diploma/GED Difficulty w/ Childcare or Family Care: No Living arrangements: with family Occupation/Education: occupation Gender identity (if verbalized by the patient): Female Sexual Orientation (if Verbalized by the Patient): Straight or Heterosexual Spiritual care concerns: No Comments At time of signature, agree with nursing past medical, surgical, social and family history. There is no relevant family history pertinent to the presenting complaint. Exam Const: General: cooperative, healthy appearing, comfortable, no acute distress and well nourished Nutritional Appearance: well nourished Orientation/consciousness: patient oriented x3 HENMT: Head: normocephalic and atraumatic Ears: external ears normal Face/Nose/Sinus: Normal external nose present, Normal nares present and normal facial exam Face and sinus: normal facial exam Eyes: General: appearance normal, both eyes and all related structures Pupils: Equal, round and reactive pupils present EOM: EOMs intact bilaterally Neck: Neck: normal visual inspection, full ROM and supple Chest: Chest palpation & inspection: normal inspection of the chest Resp: Effort & Inspection: normal respiratory effort and able to speak in complete sentences Cardio: Rate: regular rate Rhythm: regular rhythm GI: Inspection: normal to inspection GI Palp: No abdominal tenderness and Yes Soft to palpation : General: Yes no CVA tenderness Back/Spine/Pelvis: Back: no CVA tenderness Skin: General skin exam: normal color and no rashes or lesions noted Neuro: General: patient oriented x3 and moves all extremities Cranial nerves: Yes Equal, round and reactive pupils present Extrem: General: normal to inspection and full ROM Psych: Appearance: grossly normal and well kempt Course Course Emergency Course: Patient is aware of diagnosis, understands and agrees to treatment plan. Anticipatory guidance given. Patient agrees to follow-up as directed and is aware of reasons to seek care at the emergency department. Portions of this record may have been created with voice recognition software Level of Care: Express Care Visit Vital Signs Vital signs: Vital Signs Temperature 36.6 C 05/13/24 16:33 Pulse Rate 117 H 05/13/24 16:33 Respiratory Rate 16 05/13/24 16:33 Blood Pressure 136/81 05/13/24 16:33 Pulse Oximetry 100 05/13/24 16:33 Temperature 36.6 C 05/13/24 16:33 Pulse Rate 117 H 05/13/24 16:33 Respiratory Rate 16 05/13/24 16:33 Blood Pressure 136/81 05/13/24 16:33 Pulse Oximetry 100 05/13/24 16:33 Reviewed MDM - Female Genitourinary MDM Narrative Medical decision making narrative: Exam findings and UA show probable UTI, will treat with Augmentin due to being susceptible on last urine culture; patient is non-toxic appearing and is in no distress. No CMT, adnexal tenderness, or evidence of pelvic etiology. Patient is appropriate for outpatient treatment and follow-up. Differential Diagnosis Differential diagnosis: Likely urinary tract infection, bacterial vaginosis, trichomoniasis, cervicitis, vaginitis and cystitis Medical Records Attestation: I reviewed the patient's medical records. Lab Data Attestation: I reviewed the patient's lab results. Labs: Lab Results 05/13/24 Range/Units 16:34 POC Urine Color Yellow POC Urine Clarity Clear POC Urine pH 5.5 POC Ur Specif [place] 1.030 POC Urine Protein Negative (Negative) POC Ur Glucose (UA) Negative (Negative) POC Urine Ketones Negative (Negative) POC Urine Blood 2+ (Negative) POC Urine Nitrite Negative (Negative) POC Urine Bilirubin Negative (Negative) POC Urine Urobilinogen 0.2 POC U Leukocyte Esteras 1+ (Negative) Discharge Plan Discharge Clinical Impression: Urinary tract infection Qualifiers: Urinary tract infection type: acute cystitis Hematuria presence: with hematuria Qualified Code(s): N30.01 - Acute cystitis with hematuria Patient Disposition: Home, Self-Care Condition: Stable Instructions: Urinary Tract Infection in Women (ED) Additional Instructions: We will send a urine culture to the lab, based on your symptoms and urine dip we will start treatment today. If culture comes back and bacteria is not susceptible to antibiotic, your prescription may change. Your symptoms should improve within a day of starting antibiotics, but you should finish all the antibiotic pills you get. Otherwise your infection might come back Continue with increased water intake. Take Tylenol or ibuprofen as needed for pain or fever. Follow-up with primary care provider for urine recheck or see ER visit if condition worsens with high fever, nausea, vomiting, severe back pain Prescriptions: New amoxicillin-pot clavulanate 875-125 mg tablet 1 tablet PO Q12H 7 Days Qty: 14 0RF No Action ciprofloxacin HCl [Cipro] 250 mg tablet 250 mg PO Q12H 3 Days Qty: 6 0RF Follow-up/Referrals: Jose Sapp DO [Primary Care Provider] - 3 Days Stand Alone Forms: Work/School Release IP Time of Disposition: 17:14
[2024-05-13 16:44] LABS: EDUAAPPEAR Clear; EDUABILI Negative (Negative); EDUABLOOD 2+ (Negative); EDUACOLOR1 Yellow; EDUAGLUCOSE Negative (Negative); EDUAKETONE Negative (Negative); EDUALEUKO 1+ (Negative); EDUANITRATE Negative (Negative); EDUAPH 5.5; EDUAPROTEIN Negative (Negative); EDUAUROBILI 0.2
== END 2024-05-13 17:15 | disposition home or self-care (01) ==
PROVIDERS: Emergency Provider Nurse Practitioner Family; PCP Internal Medicine
DX: N30.01 Acute cystitis with hematuria (principal); E11.9 Type 2 diabetes mellitus without complications; M17.11 Unilateral primary osteoarthritis, right knee; Z86.16 Personal history of COVID-19
CPT/HCPCS: 81003; 87086; 97110; 97530; 99213; G0463